=== PATIENT | female | born 1990 | race Caucasian/White ===

== ENCOUNTER 2023-05-29 12:50 | Emergency (ER) | payer MEDICAID, SELFPAY ==
[2023-05-29 12:54] VITALS: BP 131/86; PULSE 78; RESP 18; TEMP 35.9; O2SAT 100; BMI 25.2
--- NOTE | 2023-05-29 12:57 | ED_ITS ---
HPI - Female Genitourinary General Chief complaint: Urogenital-Female Stated complaint: Pyelonephritis Time Seen by Provider: 05/29/23 13:11 Source: patient Mode of arrival: ambulatory Limitations: no limitations History of Present Illness HPI Narrative: Patient comes to the emergency room complaining of right-sided flank pain for approximately 4 days. Patient denies hematuria or dysuria. However, patient states that she tested her urine with a home UTI test, and it was positive for blood. Patient states that when she was a baby approximately 3-week-old, patient had a kidney surgery. Patient states that throughout her life she has been struggling with frequent pyelonephritis. Patient states that she usually does not have dysuria, and infection presents with flank pain. Patient denies fever . Complaining of intermittent chills, complaining of nausea without vomiting or diarrhea, no abdominal pain. Patient denies any back injuries, no heavy lifting. Related Data Previous Rx's Medication Instructions Recorded ketorolac 10 mg tablet 10 mg PO BID PRN pain #7 tabs 05/29/23 levofloxacin 500 mg tablet 500 mg PO DAILY #9 tabs 05/29/23 Allergies Allergy/AdvReac Type Severity Reaction Status Date / Time No Known Allergies Allergy Verified 05/29/23 12:56 Review of Systems 2 Review of Systems: Constitutional : No Weight loss, No Fever, No Chills, No Night Sweats, No Fatigue, No Malaise ENT/Mouth : No Hearing loss, No Ear Pain, No Nasal Congestion, No Sinus Pain, No Hoarseness, No sore throat, No Rhinorrhea, No Swallowing Difficulty Eyes: No Eye Pain, No Swelling, No Redness, No Foreign Body, No Discharge, No Vision Changes Cardiovascular : No Chest Pain, No SOB, No Dyspnea on Exertion, No Orthopnea, No Edema, No Palpitations Respiratory : No Cough, No Sputum, No Wheezing, No Smoke Exposure, No Dyspnea Gastrointestinal : No Nausea, No Vomiting, No Diarrhea, No Constipation, No abdominal Pain, No Hematochezia, No Melena Genitourinary : no irregular bleeding, No Dysuria, No Urinary Frequency, No Hematuria, No Urinary Incontinence, No Urgency, complaining of right-sided Flank Pain, No Urinary Flow Changes, No Hesitancy Musculoskeletal : No joint pain, No Myalgias, No Joint Swelling Skin : No Skin Lesions, No rash Neuro : No Weakness, No Numbness, No Paresthesias, No Loss of Consciousness, No Dizziness, No Headache Psych : No Anxiety/Panic, No Depression, No SI/HI/AH/VH, No Social Issues, Heme/Lymph: No Bruising, No Bleeding,No Lymphadenopathy Endocrine : No Polyuria, No Polydipsia, No Temperature Intolerance [facility] Past Medical History Medical History (Updated 05/29/23 @ 13:34 by Kinjal Devine MD) Recurrent pyelonephritis Social History Social History Advance Directives: No Advance Directives Information Provided: No Physical Exam 2 Vital Signs: Vital Signs: Last Vital Signs Temp 96.7 F L 05/29/23 12:54 Pulse 78 05/29/23 12:54 Resp 18 05/29/23 12:54 BP 131/86 05/29/23 12:54 Pulse Ox 100 05/29/23 12:54 O2 Del Method Room Air 05/29/23 12:54 BMI result Body Mass Index 25.2 Const: Other: Appearance: Alert. Oriented X3. No acute distress. Eyes: Pupils equal, round and reactive to light. ENT: Pharynx normal. Neck: Normal inspection. Neck supple. No lymph nodes noted. No crepitus CVS: Normal heart rate and rhythm. Pulses normal. Normal S1 and S2 Respiratory: No respiratory distress. Breath sounds normal. No Wheezing. No rales Abdomen: Soft and nontender. No rigidity. No distention. Mild flank pain on the right Skin: Skin warm and dry. Normal skin color. Normal skin turgor. Extremities: No lower extremity edema. No Lacerations. No Rash Neuro: Oriented X 3. No motor deficit. No sensory deficit. Moving all extremities. No slurred speech. CN 2 through 12 grossly intact Psych: calm, cooperative, normal affect Course Course Course Narrative: RME: 33-year-old female presents to the ED thinking she has pyelonephritis. Patient states positive UA at her job and has right flank pain. Patient states some nausea. Labs UA ordered. Patient well-appearing. Medications Administered Discontinued Medications Generic Name Dose Route Start Last Admin Trade Name Freq PRN Reason Stop Dose Admin Ketorolac Tromethamine 30 mg 05/29/23 13:56 05/29/23 14:03 Ketorolac Tromethamine 30 Mg/Ml Vial IVPUSH 05/29/23 13:57 30 mg ONCE ONE Administration Levofloxacin 500 mg 05/29/23 13:31 05/29/23 14:03 Levofloxacin 500 Mg Tablet PO 05/29/23 13:32 500 mg ONCE ONE Administration Ondansetron HCl 4 mg 05/29/23 13:56 05/29/23 14:03 Ondansetron Hcl 4 Mg/2 Ml Vial IVPUSH 05/29/23 13:57 4 mg ONCE ONE Administration Medical Decision Making Medical Decision Making [facility] Narrative: -white blood cell count within normal limits, normal renal function, normal chemistry, normal hematology, positive UTI -clinically, patient has pyelonephritis, blood pressure heart rate stable, sepsis is not suspected. -patient given a dose of p.o. Zofran, IM ketorolac and levofloxacin p.o. Differential Diagnosis Differential Diagnoses: The differential diagnosis associated with the presentation includes (Musculoskeletal pain, UTI, pyelonephritis) Lab Data [facility] Lab Attestation statement: I reviewed the patient's lab results. 05/29/23 13:14 05/29/23 13:14 Labs: Lab Results 05/29/23 Range/Units 13:14 WBC 9.2 (4.8-10.8) X10*3/uL RBC 4.42 (4.20-5.50) X10*6/uL Hgb 13.7 (12.0-16.0) g/dl Hct 41.5 (37.0-47.0) % MCV 93.9 (80.0-98.0) fL MCH 31.0 (27.0-33.0) pg MCHC 33.0 (31.0-35.0) g/dl RDW 12.2 (11.0-16.0) % Plt Count 298 (160-400) X10*3/uL MPV 9.9 (9.4-12.3) fL Immature Gran % (Auto) 0.5 H (0.0-0.4) % Neut % (Auto) 69.5 (45-73) % Lymph % (Auto) 22.8 (20-40) % [place] % (Auto) 6.5 (2-11) % Eos % (Auto) 0.3 (0-4) % Baso % (Auto) 0.4 (0-2) % Lymph # (Auto) 2.1 (1.2-4.9) X10*3/uL [place] # (Auto) 0.6 (0.1-1.2) X10*3/uL Eos # (Auto) 0.0 (0.0-0.4) X10*3/uL Baso # (Auto) 0.0 (0.0-0.2) X10*3/uL Abs Immat Gran (auto) 0.05 H (0.00-0.03) X10*3/uL Absolute Neuts (auto) 6.4 (2.0-8.3) x10*3/uL Absolute Nucleated RBC 0.000 (0.0-0.012) X10*3/uL Nucleated RBC % (auto) 0.0 (0.0-0.2) /100WBC Sodium 138 (135-145) mmol/L Potassium 4.2 (3.3-5.1) mmol/L Chloride 102 (96-108) mmol/L Carbon Dioxide 28 (22-29) mmol/L Anion Gap 12 (12-20) BUN 14 (9-16) mg/dL Creatinine 0.82 (0.5-1.4) mg/dL Estim Creat Clear Calc 92.1 Estimated GFR > 60 Random Glucose 94 (60-115) mg/dL Calcium 9.3 (8.4-10.2) mg/dL Total Bilirubin 0.7 (0.0-1.0) mg/dL AST 18 (5-31) U/L ALT 16 (0-31) U/L Alkaline Phosphatase 47 (39-117) U/L Total Protein 7.7 (6.5-8.0) g/dL Albumin 4.7 (3.5-5.0) g/dL Beta HCG, Quant < 2 mIU/mL Urine Color Yellow Urine Appearance Clear Urine pH 6.5 (5.0-9.0) Ur Specific [place] 1.015 (1.005-1.025) Urine Protein Negative (Neg-Trace) mg/dL Urine Glucose (UA) Negative (Negative) mg/dL Urine Ketones Trace (Negative) mg/dL Urine Blood Large (3+) H (Negative) Urine Nitrite Negative (Negative) Ur Leukocyte Esterase Trace H (Negative) Urine RBC >20 H (0-2) /HPF Urine WBC 11-20 H (0-5) /HPF Ur Squamous Epith Cells 6-10 (0-2) /HPF Urine Bacteria 3+ (None Seen) Hyaline Casts 0-2 (0-2) /LPF Urine Test NEGATIVE (NEGATIVE) Discharge Plan Discharge Clinical Impression: Pyelonephritis Patient Disposition: Home, Self-Care Instructions: Kidney Infection (ED) Additional Instructions: Please follow-up with your primary care physician tomorrow. If you have any worsening or new symptoms, please return to the emergency room or call 911 Prescriptions: New levofloxacin 500 mg tablet 500 mg PO DAILY Qty: 9 0RF ketorolac 10 mg tablet 10 mg PO BID PRN (Reason: pain) Qty: 7 0RF Discharge Date/Time: 05/29/23 14:25
[2023-05-29 13:18] LABS: MANUAL DIFF FLAG NO
[2023-05-29 13:22] LABS: Appearance Urine Clear; Color Urine Yellow; Glucose Urine UA Negative (Negative); Leukocyte Esterase Urine Trace (Negative); Nitrite Urine Negative (Negative); PH 6.5 (5.0-9.0); Specific Gravity - Urine 1.015 (1.005-1.025); UMIC TRIGGER UACC YES; Urine Blood Large (3+) (Negative); Urine Ketones Trace mg/dL (Negative); Urine Protein Negative (Neg-Trace)
[2023-05-29 13:24] LABS: Basophils Percent Auto 0.4 % (0-2); Eosinophils Percent Auto 0.3 % (0-4); Hematocrit 41.5 % (37.0-47.0); Hemoglobin 13.7 g/dl (12.0-16.0); Imm Gran Abs Auto 0.05 X10*3/uL (0.00-0.03); Imm Gran Pct Auto 0.5 % (0.0-0.4); Lymphocytes Absolute Auto 2.1 X10*3/uL (1.2-4.9); Lymphocytes Percent Auto 22.8 % (20-40); Mean Corpuscular Volume 93.9 fL (80.0-98.0); Mean Platelet Volume 9.9 fL (9.4-12.3); Monocytes Absolute Auto 0.6 X10*3/uL (0.1-1.2); Monocytes Percent Auto 6.5 % (2-11); Neutrophils Absolute Auto 6.4 x10*3/uL (2.0-8.3); Neutrophils Percent Auto 69.5 % (45-73); Platelet Count 298 X10*3/uL (160-400); Red Blood Count 4.42 X10*6/uL (4.20-5.50); Red Cell Distribution Width 12.2 % (11.0-16.0); White Blood Count 9.2 X10*3/uL (4.8-10.8)
[2023-05-29 13:25] LABS: Bacteria Urine 3+ (None Seen); Hyaline Casts Urine 0-2 /LPF (0-2); RBC Urine >20 /HPF (0-2); UACC Culture Trigger YES; UPreg QC Valid YES; Urine Pregnancy NEGATIVE (NEGATIVE)
[2023-05-29 13:42] LABS: Alanine Aminotransferase 16 U/L (0-31); Albumin Level 4.7 g/dL (3.5-5.0); Alkaline Phosphatase 47 U/L (39-117); Anion Gap 12 (12-20); Aspartate Amino Transferase 18 U/L (5-31); Bilirubin Total 0.7 mg/dL (0.0-1.0); Blood Urea Nitrogen 14 mg/dL (9-16); Calcium 9.3 mg/dL (8.4-10.2); Carbon Dioxide 28 mmol/L (22-29); Chloride 102 mmol/L (96-108); Creatinine Clr Calc Pharmacy 92.1; Estimated Glomerular Filt Rate > 60; Glucose Random 94 mg/dL (60-115); HCG Quantitative < 2 mIU/mL; Potassium 4.2 mmol/L (3.3-5.1); Sodium 138 mmol/L (135-145); Total Protein 7.7 g/dL (6.5-8.0)
[2023-05-29] MEDS: ondansetron HCL 4 MG/2 ML VIAL IVPUSH (14:03)
[2023-05-29] MEDS: levoFLOXacin 500 MG TABLET PO (14:03)
[2023-05-29] MEDS: Ketorolac Tromethamine 30 MG/ML VIAL IVPUSH (14:03)
== END 2023-05-29 14:25 | disposition home or self-care (01) ==
PROVIDERS: Physician Assistant; Emergency Provider Emergency Medicine
DX: N12 Tubulo-interstitial nephritis, not specified as acute or chronic (principal)
CPT/HCPCS: 36415; 80053; 81001; 81025; 84702; 85025; 87086; 87088; 87186; 96374; 96375; 99283; 99284; J1885; J2405

== ENCOUNTER 2023-08-06 09:27 | Emergency (ER) | payer MEDICAID, SELFPAY ==
[2023-08-06] VITALS (7 sets, daily range): BP systolic 102–116; BP diastolic 61–77; PULSE 80–95; RESP 16–20; TEMP 36.6–36.9; O2SAT 97–100; BMI 27.0
--- NOTE | ~2023-08-06 | CT_ITS ---
EXAMINATION: CT LUMBAR SPINE CLINICAL INFORMATION: 33-year-old female with history of spinal surgery 2 years ago. Patient woke up this morning after loss of bowel control and has severe low back pain. COMPARISON: None available. TECHNIQUE: Multidetector CT imaging examination of the lumbar spine is performed with use of 85 mL of Omnipaque [address] examination was performed using dose optimization techniques as appropriate, variously including the following: *Automated exposure control *Adjustment of mA and/or kV according to patient size (this includes techniques or standardized protocols for targeted exams where dose is matched to indication/reason for exam; i.e. extremities or head) *Use of iterative reconstruction technique DLP: 357 mGy-cm FINDINGS: The superior aspect of the L1 vertebra is excluded from the [id number]-uy-[id number]. The lumbar vertebra have normal density, height and alignment. The anterior and posterior elements are intact. No evidence of vertebral compression fractures or pars interarticularis defects. Transitional lumbosacral anatomy with presence of a rudimentary disc space at the S1-S2 level. The disc spaces are normal at L1-L2, L2-L3, L3-L4 and L4-L5. At L5-S1, there is mild loss of disc height, mild disc bulge and what appears to represent a superimposed left paracentral disc herniation with caudal migration of disc posterior to the upper third of the S1 vertebra and likely exerting mass effect upon the transiting left S1 nerve root. The soft tissue structures could be better evaluated on an MR imaging exam, it deemed clinically necessary. There is no epidural or paraspinal fluid collection. Abdominal aorta is normal in caliber. Inferior vena cava is normal. No retroperitoneal mass or lymphadenopathy within the examined [id number]. The kidneys are partially included in the ptysy-yo-yzvc. There is mild asymmetric dilatation of the left renal pelvis compared to the normal right renal pelvis but no renal stones. There is no convincing acute hydronephrosis. No perinephric edema. Note that the renal ultrasound from 01/17/2018 obtained during patient's demonstrated moderate left hydronephrosis. The distal segment of the common bile duct is included in the ktfov-ho-jhwc and it measures 1.[address]/CT lumbar spine w IV con IMPRESSION: * No acute osseous injury in the examined lumbosacral spine. No fracture or malalignment. * At L5-S1, there is mild disc bulge and apparent superimposed left paracentral disc herniation with caudal migration of disc material that likely exerts mass effect upon the transiting left S1 nerve root. * There is mild pelviectasis of the left kidney but no convincing acute hydronephrosis. This represents improvement from the hydronephrosis observed on renal ultrasound from 01/17/2018. * The dilated distal common bile duct is partially included in the [id number]. The chronicity of the ductal dilatation is uncertain. There are no comparison imaging exams that include the hepatobiliary structures.
--- NOTE | 2023-08-06 10:24 | PC.NURSE ---
communicated urgency of pts sx to battery recharger
--- NOTE | 2023-08-06 11:07 | ED_ITS ---
HPI - General Adult General Chief complaint: Back Pain/Injury Stated complaint: Back pain hx of back surgery Time Seen by Provider: 08/06/23 11:07 Source: patient Mode of arrival: ambulatory Limitations: no limitations History of Present Illness HPI narrative: Patient is a 33 year old assigned female at with a history of spinal surgery presenting to the emergency department today with nausea, vomiting, low back pain, and bowel incontinence. Patient states that she woke up with low back pain and realized she was covered in her own feces. Patient states that she had an L4 discectomy in 2021 at the [facility]. Patient denies any dizziness, lightheadedness, abdominal pain, fever, chills, blurry vision, double vision, loss of vision, chest pain, difficulty breathing, shortness of breath, night sweats, pain with urination, increased urinary frequency, increased urinary urgency, blood in her urine or stool, syncope or a near syncopal episode, recent trauma or falls, or any other complaints at this time. Onset (ago): hour(s) Location: back Severity: mild Severity scale (1-10): 6 Quality: aching and constant Pain Consistency: constant Relieving factors: immobilization Exacerbating factors: movement Associated symptoms: nausea/vomiting Treatments prior to arrival: none Related Data Previous Rx's ?Medication ?Instructions ?Recorded ketorolac 10 mg tablet 10 mg PO BID PRN pain #7 tabs 05/29/23 levofloxacin 500 mg tablet 500 mg PO DAILY #9 tabs 05/29/23 cefuroxime axetil 250 mg tablet 250 mg PO BID 7 days #14 tabs 08/06/23 methylprednisolone 4 mg tablets in 4 mg PO DAILY #21 ea 08/06/23 a dose pack (Medrol (Sj)) Allergies Allergy/AdvReac Type Severity Reaction Status Date / Time No Known Allergies Allergy Verified 08/06/23 10:05 Review of Systems 2 Constitutional: Constitutional: Reports no additional constitutional complaints, Denies chills, Denies fever(s) and Denies night sweats Eyes: Eyes: Reports no additional eye complaints, Denies blurry vision, Denies change in vision, Denies diplopia, Denies eye discharge, Denies loss of vision and Denies eye pain ENT: Denies dizziness Cardiovascular: Cardiovascular: Reports no additional cardiovascular complaints, Denies chest pain, Denies lightheadedness, Denies Loss of Consciousness and Denies dyspnea Respiratory: Respiratory: Reports no additional respiratory complaints and Denies dyspnea Gastrointestinal: Gastrointestinal: Reports no additional gastrointestinal complaints, Denies abdominal pain, Reports fecal incontinence, Reports nausea and Reports vomiting Genitourinary: Genitourinary: Denies hematuria, Denies urinary frequency, Denies dysuria, Denies urinary incontinence, Denies urinary hesitancy and Denies urinary urgency Musculoskeletal: Musculoskeletal: Reports no additional musculoskeletal complaints, Reports back pain, Denies numbness and Denies tingling Neurologic: Denies dizziness, Denies loss of vision, Denies numbness and Denies tingling Psychiatric: Psychiatric: Reports no additional psychiatric complaints Endocrine: Endocrine: Reports no additional endocrine complaints Hematologic/Lymphatic: Hematologic/Lymphatic: Reports no additional hematologic/lymphatic complaints Allergic/Immunologic: Allergic/Immunologic: Reports no additional allergic/immunologic complaints PMFSH Past Medical History Attestation statement: The following information was validated with the patient. Source: old records reviewed and nursing notes reviewed Medical History Recurrent pyelonephritis Social History Social History Alcohol intake: current Alcohol intake frequency: a few times a month Smoked in Last 30 Days: No Use of substances other than those prescribed or required for medical reasons: No Advance Directives: No Advance Directives Information Provided: Yes Physical Exam ED Vital Signs: Vital Signs - 24 hr 08/06/23 10:03 08/06/23 11:15 08/06/23 12:28 Temperature 98.5 F 97.8 F Pulse Rate 95 83 92 Respiratory Rate 20 20 18 Blood Pressure 102/77 108/70 116/69 Pulse Oximetry 99 99 98 Oxygen Delivery Method Room Air Room Air Room Air 08/06/23 12:32 08/06/23 13:13 08/06/23 14:08 Temperature Pulse Rate 90 89 86 Respiratory Rate 19 18 16 Blood Pressure 111/61 114/70 109/65 Pulse Oximetry 97 100 97 Oxygen Delivery Method Room Air Room Air BMI result Body Mass Index 27.0 Const General: cooperative, no acute distress, alert and awake Nutritional Appearance: well nourished Orientation/consciousness: patient oriented x3 Limitations: no limitations HENMT Head: Yes normal to inspection and Yes atraumatic Ears: hearing grossly normal bilaterally and external ears normal General nose exam: Normal external nose present, no nasal discharge noted and no epistaxis Face and sinus: Yes normal facial exam, No abrasion and No laceration Mouth: Normal oral and palatal mucosa present, no drooling and no muffled voice Eyes General: appearance normal, both eyes and all related structures Periorbital: periorbital findings normal Eyelids: Yes eyelids normal Conjunctivae: conjunctivae normal Pupils: Equal, round and reactive pupils present EOM: EOMs intact bilaterally Neck Neck: Yes normal visual inspection, Yes full ROM and Yes no lymphadenopathy Chest Chest palpation & inspection: normal inspection of the chest Resp Effort & Inspection: normal respiratory effort and able to speak in complete sentences GI Inspection: Yes normal to inspection Rectal Exam - Female: visual inspection normal and normal sphincter tone General: Yes no CVA tenderness Back/Spine/Pelvis Back: no CVA tenderness Cervical Spine: normal cervical lordosis and cervical ROM normal Thoracic/Lumbar Spine: other (pain upon ambulation and with all movement of the low back) Neuro General: patient oriented x3 and moves all extremities Cranial nerves: Yes Equal, round and reactive pupils present Cognition (Neuro): normal cognition Motor exam (neuro): 5/5 motor strength present throughout Sensory Exam: Normal double simultaneous stimulation for sensation Coordination: [id number] test normal Extrem General: Yes normal to inspection, Yes full ROM and Yes capillary refill normal Psych Appearance: grossly normal Mental Status: mental status grossly normal Affect: normal affect Attitude: cooperative Thought process: Normal thought process present Thought content: Normal thought content present Insight: Good insight present (Psych) Medications Administered Discontinued Medications Generic Name Dose Route Start Last Admin Trade Name Sujatha PRN Reason Stop Dose Admin Diazepam 2.5 mg 08/06/23 11:10 08/06/23 11:32 Diazepam 10 Mg/2 Ml Cartridge IVPUSH 08/06/23 11:11 2.5 mg STAT STA Administration Hydromorphone HCl 1 mg 08/06/23 12:14 08/06/23 12:27 Hydromorphone Hcl 1 Mg/Ml Syringe IVPUSH 08/06/23 12:15 1 mg ONCE ONE Administration Protocol Hydromorphone HCl 2 mg 08/06/23 13:56 08/06/23 14:06 Hydromorphone Hcl 2 Mg/Ml Vial IVPUSH 08/06/23 13:57 2 mg ONCE ONE Administration Protocol Ceftriaxone Sodium 1 gm/ 50 mls @ 100 mls/hr 08/06/23 13:56 08/06/23 14:06 Sodium Chloride IV 08/06/23 14:25 100 mls/hr ONCE ONE Administration Iohexol 100 ml 08/06/23 12:44 08/06/23 12:44 Iohexol 350 Mg/Ml 100 Ml Infus..Btl IV 08/06/23 12:45 85 ml ONCE ONE Administration Ondansetron HCl 4 mg 08/06/23 12:29 08/06/23 12:30 Ondansetron Hcl 4 Mg/2 Ml Vial IVPUSH 08/06/23 12:30 4 mg ONCE ONE Administration Medical Decision Making Medical Decision Making MDM Narrative: Patient is a 33 year old assigned female at with a history of discectomy of L4 presenting to the emergency department today with bowel incontinence and low back pain. Patient's physical exam showed significant pain with any kind of gait or movement in the low back. Patient has good rectal tone. Patient's blood work was unremarkable. Patient's urine showed a possible UTI, will cover. Patient's CT of the lumbar spine showed mild disc bulge and superimposed left paracentral disc herniation with caudal migration of the disc material exerting mass effect upon the left S1 nerve root. I explained my physical exam findings as well as all test results to the patient. I answered all questions asked by the patient. I called and spoke to Dr. Barillas, neurosurgeon at [facility], who recommended the patient be discharged home on a medrol dose pack, follow up with her PA tomorrow (08/07/2023) at 11am, and then have surgery on 08/08/2023. I stressed the importance of the patient taking her medication as prescribed. I stressed the importance of the patient following up with her primary care provider. I stressed the importance of the patient returning to the emergency department immediately if her symptoms were to worsen or if she were to develop any dizziness, shortness of breath, difficulty breathing, chest pain, blurry vision, loss of vision, nausea, vomiting, abdominal pain, fever, chills, back pain, or any other complaints. Patient verbalized agreement and understanding with this treatment plan and discharge. Differential Diagnosis Differential Diagnoses: The differential diagnosis associated with the presentation includes Herniated disc at L5-S1 Bowel incontinence Intractable pain Lumbar pain Admission/Observation Consideration of admission/observation: Escalation of care including admission/observation considered Patient would have been admitted to the hospital had her work up had any findings where hospital admission was appropriate and her clinical presentation warranted hospital admission. Consult Healthcare Provider Management of the patient was discussed with: [employer] (spoke to Dr. Barillas the neurosurgeon as noted in the MDM Rationale portion of this note.) Lab Data [facility] Lab Attestation statement: I reviewed the patient's lab results. My interpretation of these results are in the MDM Rationale portion of this note. 08/06/23 11:24 08/06/23 11:24 Labs: Lab Results 08/06/23 08/06/23 Range/Units 11:24 13:09 WBC 10.4 (4.8-10.8) X10*3/uL RBC 4.60 (4.20-5.50) X10*6/uL Hgb 14.5 (12.0-16.0) g/dl Hct 43.1 (37.0-47.0) % MCV 93.7 (80.0-98.0) fL MCH 31.5 (27.0-33.0) pg MCHC 33.6 (31.0-35.0) g/dl RDW 12.6 (11.0-16.0) % Plt Count 251 (160-400) X10*3/uL MPV 9.6 (9.4-12.3) fL Immature Gran % (Auto) 0.4 (0.0-0.4) % Neut % (Auto) 86.3 H (45-73) % Lymph % (Auto) 6.1 L (20-40) % [place] % (Auto) 5.9 (2-11) % Eos % (Auto) 1.0 (0-4) % Baso % (Auto) 0.3 (0-2) % Lymph # (Auto) 0.6 L (1.2-4.9) X10*3/uL [place] # (Auto) 0.6 (0.1-1.2) X10*3/uL Eos # (Auto) 0.1 (0.0-0.4) X10*3/uL Baso # (Auto) 0.0 (0.0-0.2) X10*3/uL Abs Immat Gran (auto) 0.04 H (0.00-0.03) X10*3/uL Absolute Neuts (auto) 9.0 H (2.0-8.3) x10*3/uL Absolute Nucleated RBC 0.000 (0.0-0.012) X10*3/uL Nucleated RBC % (auto) 0.0 (0.0-0.2) /100WBC ESR 1 (0-20) MM/HR Sodium 140 (135-145) mmol/L Potassium 4.0 (3.3-5.1) mmol/L Chloride 105 (96-108) mmol/L Carbon Dioxide 28 (22-29) mmol/L Anion Gap 11 L (12-20) BUN 12 (9-16) mg/dL Creatinine 0.80 (0.5-1.4) mg/dL Estim Creat Clear Calc 105.1 Estimated GFR > 60 Random Glucose 98 (60-115) mg/dL Calcium 8.7 D (8.4-10.2) mg/dL Total Bilirubin 1.0 (0.0-1.0) mg/dL AST 20 (5-31) U/L ALT 21 (0-31) U/L Alkaline Phosphatase 51 (39-117) U/L C-Reactive Protein 0.17 (< or = 0.50) mg/dL Total Protein 7.4 (6.5-8.0) g/dL Albumin 4.5 (3.5-5.0) g/dL Beta HCG, Quant < 2 mIU/mL Urine Color Red A Urine Appearance Cloudy Urine pH 6.5 (5.0-9.0) Ur Specific [place] >= 1.030 H (1.005-1.025) Urine Protein 100 (2+) H (Neg-Trace) mg/dL Urine Glucose (UA) Negative (Negative) mg/dL Urine Ketones Negative (Negative) mg/dL Urine Blood Large (3+) H (Negative) Urine Nitrite Negative (Negative) Ur Leukocyte Esterase Trace H (Negative) Urine RBC 3-5 H (0-2) /HPF Urine WBC 11-20 H (0-5) /HPF Ur Squamous Epith Cells 11-20 (0-2) /HPF Urine Bacteria 4+ (None Seen) Hyaline Casts 0-2 (0-2) /LPF Independent Interpretation I performed an independent interpretation of an: CT Scan Interpretation: My interpretation is in agreement with the radiologist's impression of this imaging study. - EXAMINATION: CT LUMBAR SPINE CLINICAL INFORMATION: 33-year-old female with history of spinal surgery 2 years ago. Patient woke up this morning after loss of bowel control and has severe low back pain. COMPARISON: None available. TECHNIQUE: Multidetector CT imaging examination of the lumbar spine is performed with use of 85 mL of Omnipaque [address] examination was performed using dose optimization techniques as appropriate, variously including the following: *Automated exposure control *Adjustment of mA and/or kV according to patient size (this includes techniques or standardized protocols for targeted exams where dose is matched to indication/reason for exam; i.e. extremities or head) *Use of iterative reconstruction technique DLP: 357 mGy-cm FINDINGS: The superior aspect of the L1 vertebra is excluded from the [id number]. The lumbar vertebra have normal density, height and alignment. The anterior and posterior elements are intact. No evidence of vertebral compression fractures or pars interarticularis defects. Transitional lumbosacral anatomy with presence of a rudimentary disc space at the S1-S2 level. The disc spaces are normal at L1-L2, L2-L3, L3-L4 and L4-L5. At L5-S1, there is mild loss of disc height, mild disc bulge and what appears to represent a superimposed left paracentral disc herniation with caudal migration of disc posterior to the upper third of the S1 vertebra and likely exerting mass effect upon the transiting left S1 nerve root. The soft tissue structures could be better evaluated on an MR imaging exam, it deemed clinically necessary. There is no epidural or paraspinal fluid collection. Abdominal aorta is normal in caliber. Inferior vena cava is normal. No retroperitoneal mass or lymphadenopathy within the examined [id number]. The kidneys are partially included in the [id number]. There is mild asymmetric dilatation of the left renal pelvis compared to the normal right renal pelvis but no renal stones. There is no convincing acute hydronephrosis. No perinephric edema. Note that the renal ultrasound from 01/17/2018 obtained during patient's demonstrated moderate left hydronephrosis. The distal segment of the common bile duct is included in the [id number]-tz-[id number] and it measures 1.[address]/CT lumbar spine w IV con IMPRESSION: * No acute osseous injury in the examined lumbosacral spine. No fracture or malalignment. * At L5-S1, there is mild disc bulge and apparent superimposed left paracentral disc herniation with caudal migration of disc material that likely exerts mass effect upon the transiting left S1 nerve root. * There is mild pelviectasis of the left kidney but no convincing acute hydronephrosis. This represents improvement from the hydronephrosis observed on renal ultrasound from 01/17/2018. * The dilated distal common bile duct is partially included in the dutni-jj-vojt. The chronicity of the ductal dilatation is uncertain. There are no comparison imaging exams that include the hepatobiliary structures. Dictated By: Oswaldo Quintana MD Signed By: Electronically signed by Oswaldo Quintana MD 08/06/23 [id number] Radiology Impression Discussion of test interpretation with radiology: I have reviewed the radiologist's reading. Critical Care Time Critical Care Time Critical Care Time: Yes Total Critical Care Time: 128 Attestation: I spent 128 minutes of Critical Care Time with this patient. This does not include time spent on separately reported billable procedures. Discharge Plan Discharge Clinical Impression: UTI (urinary tract infection), Lumbar disc herniation Patient Disposition: Home, Self-Care Instructions: Urinary Tract Infection in Women (DC), Acute Low Back Pain (ED) Additional Instructions: Follow up with the Neurosurgery PA at 11am tomorrow, 08/07/2023, at [address] [place] [address], in [facility]. Dr. Barillas will perform surgery on 08/09/2023. Bring your imaging disc with you to the appointment! Follow up with your primary care provider. Return to the emergency department immediately if your symptoms worsen or if you develop any dizziness, shortness of breath, difficulty breathing, chest pain, blurry vision, loss of vision, nausea, vomiting, abdominal pain, fever, chills, back pain, or any other complaints. Prescriptions: New methylprednisolone [Medrol (Sj)] 4 mg tablets,dose pack 4 mg PO DAILY Qty: 21 0RF cefuroxime axetil 250 mg tablet 250 mg PO BID 7 Days Qty: 14 0RF No Action levofloxacin 500 mg tablet 500 mg PO DAILY Qty: 9 0RF ketorolac 10 mg tablet 10 mg PO BID PRN (Reason: pain) Qty: 7 0RF Referrals: [facility] [place] [facility] [place] [Provider Group] (Call to establish and follow up with a primary care provider. If you already have a primary care provider, please follow up with them.) [facility] [place] [facility] [Provider Group] [facility] [place] [facility] [Provider Group] Stand Alone Forms: Work/School Release Print Language: Djib[place]ian
[2023-08-06 11:28] LABS: MANUAL DIFF FLAG NO
[2023-08-06] MEDS: diazePAM 10 MG/2 ML CARTRIDGE 2.5 MG IVPUSH (11:32)
[2023-08-06 11:33] LABS: Basophils Percent Auto 0.3 % (0-2); Eosinophils Absolute Auto 0.1 X10*3/uL (0.0-0.4); Hematocrit 43.1 % (37.0-47.0); Hemoglobin 14.5 g/dl (12.0-16.0); Imm Gran Abs Auto 0.04 X10*3/uL (0.00-0.03); Imm Gran Pct Auto 0.4 % (0.0-0.4); Lymphocytes Absolute Auto 0.6 X10*3/uL (1.2-4.9); Lymphocytes Percent Auto 6.1 % (20-40); Mean Corpuscular HGB Conc 33.6 g/dl (31.0-35.0); Mean Corpuscular Hemoglobin 31.5 pg (27.0-33.0); Mean Corpuscular Volume 93.7 fL (80.0-98.0); Mean Platelet Volume 9.6 fL (9.4-12.3); Monocytes Absolute Auto 0.6 X10*3/uL (0.1-1.2); Monocytes Percent Auto 5.9 % (2-11); Neutrophils Percent Auto 86.3 % (45-73); Platelet Count 251 X10*3/uL (160-400); Red Cell Distribution Width 12.6 % (11.0-16.0); White Blood Count 10.4 X10*3/uL (4.8-10.8)
[2023-08-06 11:51] LABS: Alanine Aminotransferase 21 U/L (0-31); Albumin Level 4.5 g/dL (3.5-5.0); Alkaline Phosphatase 51 U/L (39-117); Anion Gap 11 (12-20); Aspartate Amino Transferase 20 U/L (5-31); Blood Urea Nitrogen 12 mg/dL (9-16); C Reactive Protein 0.17 mg/dL (< or = 0.50); Calcium 8.7 mg/dL (8.4-10.2); Carbon Dioxide 28 mmol/L (22-29); Chloride 105 mmol/L (96-108); Creatinine Clr Calc Pharmacy 105.1; Estimated Glomerular Filt Rate > 60; Glucose Random 98 mg/dL (60-115); Sodium 140 mmol/L (135-145); Total Protein 7.4 g/dL (6.5-8.0)
[2023-08-06 12:02] LABS: HCG Quantitative < 2 mIU/mL
[2023-08-06 12:17] LABS: Erythrocyte Sedimentation Rate 1 MM/HR (0-20)
[2023-08-06] MEDS: HYDROmorphone HCl 1 MG/ML SYRINGE IVPUSH (12:27)
[2023-08-06] MEDS: ondansetron HCL 4 MG/2 ML VIAL IVPUSH (12:30)
[2023-08-06] MEDS: iohexoL 350 MG/ML 100 ML INFUS..BTL IV (12:44)
[2023-08-06 13:20] LABS: Appearance Urine Cloudy; Color Urine Red; Glucose Urine UA Negative (Negative); Leukocyte Esterase Urine Trace (Negative); Nitrite Urine Negative (Negative); PH 6.5 (5.0-9.0); Specific Gravity - Urine >= 1.030 (1.005-1.025); UMIC TRIGGER UACC YES; Urine Blood Large (3+) (Negative); Urine Ketones Negative (Negative); Urine Protein 100 (2+) mg/dL (Neg-Trace)
[2023-08-06 13:45] LABS: Bacteria Urine 4+ (None Seen); Hyaline Casts Urine 0-2 /LPF (0-2); UACC Culture Trigger YES
[2023-08-06] MEDS: cefTRIAXone sodium 1 GM in 0.9 % Sodium Chloride 50 ML IV (14:06)
[2023-08-06] MEDS: HYDROmorphone HCl 2 MG/ML VIAL IVPUSH (14:06)
--- NOTE | 2023-08-06 14:55 | PC.NURSE ---
waiting for disc to be burned by radiology
== END 2023-08-06 15:09 | disposition home or self-care (01) ==
PROVIDERS: Physician Assistant Medical; Emergency Provider Emergency Medicine
DX: N39.0 Urinary tract infection, site not specified (principal); M51.26 Other intervertebral disc displacement, lumbar region; R11.2 Nausea with vomiting, unspecified
CPT/HCPCS: 36415; 72132; 80053; 81001; 84702; 85025; 85652; 86140; 87086; 96374; 96375; 96376; 99284; J0696; J1170; J2405; J3360; Q9967